=== PATIENT | male | born 1975 | race Caucasian/White ===

== ENCOUNTER 2018-09-11 08:46 | Emergency (ER) | payer OTHER ==
[~2018-09-11] VITALS: Ht 177.8 cm; Wt 68.0 kg
[~2018-09-11 08:46] MED LIST: CEPHALEXIN500 MG PO; INTESTINEX680 MG PO; SYNTHROID50 MCG
== END 2018-09-11 10:26 | disposition home or self-care (01) ==
LOC: ER 08:46
DX: H10.89 Other conjunctivitis (principal)

== ENCOUNTER 2023-12-26 07:50 | Emergency (ER) | payer OTHER ==
[~2023-12-26] VITALS: Ht 175.3 cm; Wt 63.5 kg
== END 2023-12-26 08:46 | disposition home or self-care (01) ==
LOC: ER 07:50
DX: S01.02XA Laceration with foreign body of scalp, initial encounter (principal); W22.8XXA Striking against or struck by other objects, initial encounter; Y93.89 Activity, other specified; Y92.89 Other specified places as the place of occurrence of the external cause

== ENCOUNTER 2024-01-01 09:38 | Emergency (ER) | payer OTHER ==
[~2024-01-01] VITALS: Ht 175.3 cm; Wt 65.8 kg
== END 2024-01-01 11:19 | disposition home or self-care (01) ==
LOC: ER 09:38
DX: Z48.02 Encounter for removal of sutures (principal)